=== PATIENT | female | born 1965 | race Caucasian/White ===

== ENCOUNTER → 2022-09-29 | Outpatient (CLI) | payer OTHER ==
[2022-09-30 11:31] LABS: Candida species (DNA Probe) Negative (NEGATIVE); G. vaginalis (DNA Probe) Negative (NEGATIVE); T. vaginalis (DNA Probe) Negative (NEGATIVE)
== END ==
LOC: LAB SHORT 16:39 → LAB 16:39
PROVIDERS: Obstetrics & Gynecology
DX: Z01.419 Encounter for gynecological examination (general) (routine) without abnormal findings (principal); N89.8 Other specified noninflammatory disorders of vagina
CPT/HCPCS: 87480; 87510; 87660

== ENCOUNTER → 2024-05-01 | Outpatient (CLI) | payer OTHER | LOC: LAB 13:30 → LAB SHORT 13:30 → PLD 13:30 | DX: N95.0 Postmenopausal bleeding (principal); N85.8 Other specified noninflammatory disorders of uterus | CPT/HCPCS: 88305 ==

== ENCOUNTER 2024-07-06 06:09 | Day surgery (SDC) | payer OTHER ==
[~2024-07-06] VITALS: Ht 170.2 cm; Wt 93.3 kg
[~2024-07-06 06:09] MED LIST: Lactated Ringer's 1,000 ML IV ONE
[2024-07-06] MEDS ORDERED: Dexmedetomidine HCL 200 MCG / 2 ML ONE (06:32)
[2024-07-06] MEDS ORDERED: propofoL 50 ML IV ONE (06:32)
[2024-07-06] MEDS ORDERED: Lidocaine HCl 4% 5 ML SDA ONE (06:32)
[2024-07-06] MEDS ORDERED: Dexamethasone Sod Phos 10 MG/ML 1ML VIAL ONE (06:45)
[2024-07-06] MEDS ORDERED: Ondansetron HCl 2 MG / ML 2ML Vial ONE (06:45)
[2024-07-06] MEDS ORDERED: Ketorolac Tromethamine 30mg Vial ONE (06:45)
[2024-07-06] MEDS ORDERED: LEVSOD112 PO (06:58)
[2024-07-06] MEDS ORDERED: PROGESTERONE200 M1 PO (06:59)
[2024-07-06] MEDS ORDERED: GABA100 PO (07:04)
[2024-07-06] MEDS ORDERED: METF500 PO (07:05)
[2024-07-06] MEDS ORDERED: FENO160 PO (07:05)
[2024-07-06] MEDS ORDERED: PANT20 PO (07:06)
[2024-07-06] MEDS ORDERED: PRAM.125 PO (07:07)
[2024-07-06] MEDS ORDERED: BUPROPION HCL200 M2 PO (07:07)
[2024-07-06] MEDS ORDERED: FentaNYL Citrate 50 MCG/ML 2 ML Injection ONE (07:07)
[2024-07-06] MEDS ORDERED: CLIMARA1 EACH TOP (07:08)
[2024-07-06] MEDS ORDERED: Metoclopramide HCl 5MG / ML 2ML Vial ONE (07:15)
[2024-07-06] MEDS ORDERED: Acetaminophen 500 MG Tab ONE (07:19)
[2024-07-06] MEDS ORDERED: Lactated Ringer's 1,000 ML IV ONE (07:22)
--- NOTE | 2024-07-06 08:34 | NUR ---
07/06/24 0834 Amberly Rose 0815: PAIN PT STATES IS MORE "DISCOMFORT" AND IS 5/10 BUT IS "NOT THAT BAD" AND IS TOLERABLE, DECLINES MEDICATION. 0833: PATIENT REPORTS PAIN IS "NOW 2 OR 3 OUT OF 10". PERIPAD CHANGED. NO BLOOD ON PERIPAD NOTED.
[2024-07-06 09:01] VITALS: BP 96/62
== END 2024-07-06 08:54 | disposition home or self-care (01) ==
LOC: ORSCSDS 06:09
PROVIDERS: Obstetrics & Gynecology
PROC: 0UDB8ZX Extraction of Endometrium, Via Natural or Artificial Opening Endoscopic, Diagnostic (ICD-10-PCS; principal; 2024-07-06 07:30)
DX: N95.0 Postmenopausal bleeding (principal); D25.9 Leiomyoma of uterus, unspecified; I10 Essential (primary) hypertension; E78.5 Hyperlipidemia, unspecified; K21.9 Gastro-esophageal reflux disease without esophagitis; E11.9 Type 2 diabetes mellitus without complications; E03.9 Hypothyroidism, unspecified; E66.9 Obesity, unspecified; Z68.32 Body mass index [BMI] 32.0-32.9, adult; F41.9 Anxiety disorder, unspecified; F32.A Depression, unspecified; Z79.84 Long term (current) use of oral hypoglycemic drugs; Z79.899 Other long term (current) drug therapy
CPT/HCPCS: 82947; 88305; A9270; J1100; J1885; J2003; J2405; J2704; J2765; J3010; J7120

== ENCOUNTER → 2024-10-26 | Outpatient (CLI) | payer OTHER ==
[~2024-10-26] MED LIST changes: +Aspir 8181 MG PO; +BUPROPION HCL200 M2 PO; +CLIMARA1 EACH TOP; +FENO160 PO; +GABA100 PO; +Isosorbide Mono30 MG PO; +LEVSOD112 PO; -Lactated Ringer's 1,000 ML IV ONE; +METF500 PO; +PANT20 PO; +PRAM.125 PO; +PROGESTERONE200 M1 PO; +TICA90TA PO
== END ==
LOC: LAB SHORT 10:19 → LAB 10:19
DX: R30.0 Dysuria (principal)
CPT/HCPCS: 87077; 87086; 87186

== ENCOUNTER → 2024-12-19 | Outpatient (CLI) | payer OTHER ==
[2024-12-19 19:26] LABS: Red Blood Cells, Urine 0-2 /hpf (0-2)
== END ==
LOC: LAB 17:12 → LAB SHORT 17:12
PROVIDERS: Urology
DX: N13.30 Unspecified hydronephrosis (principal)
CPT/HCPCS: 81015